=== PATIENT | male | born 1995 | race African-American/Black ===

== ENCOUNTER 2018-06-30 10:32 | Emergency (ER) | payer OTHER ==
[2018-06-30] MEDS ORDERED: LIDOCAINE 1% W/EPI 1:100,000 MDV 50 ML VIAL ONE (10:57)
[2018-06-30] MEDS ORDERED: HYDROCODONE/APAP 10/325 TAB ONE (11:14)
[2018-06-30] MEDS ORDERED: TETANUS & DIPHTHERIA TOX,ADULT 0.5 ML VIAL ONE (11:14)
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
[2018-06-30] MEDS ORDERED: CEFAZOLIN SODIUM 1 GM/VIAL ONE (12:52)
[2018-06-30] MEDS ORDERED: CEPHALEXIN 250 MG CAP ONE (12:52)
== END 2018-06-30 13:44 | disposition home or self-care (01) ==
LOC: ER 10:32
PROC: 0CQ0XZZ Repair Upper Lip, External Approach (ICD-10-PCS; principal; 2018-06-30)
DX: S01.511A Laceration without foreign body of lip, initial encounter (principal); S60.211A Contusion of right wrist, initial encounter; Y04.8XXA Assault by other bodily force, initial encounter; Y93.89 Activity, other specified; Y92.149 Unspecified place in prison as the place of occurrence of the external cause; Z23 Encounter for immunization
CPT/HCPCS: 70486; 76377; 90714; 96372; 99285; J0690